=== PATIENT | female | born 1935 | race African-American/Black ===

== ENCOUNTER 2017-11-18 08:51 | Inpatient (IN) ==
[2017-11-18 09:48] LABS: Basophils % 0.4 % (0.0-0.8); Eosinophils % 0.3 % (0.00-10.9); Hematocrit 36.1 VOL% (35.7-47.0); Hemoglobin 12.3 GM/DL (12.0-16.0); Immature Granulocytes % 0.4 %; Immature Granulocytes Absolute 0.03 #; Lymphocytes # 0.6 10*3/uL (1.4-4.0); Lymphocytes % 8.6 % (21.3-54.2); Mean Corpuscular HGB Conc 34.1 GM/DL (32-36); Mean Corpuscular Hemoglobin 30 PG (27-34); Mean Corpuscular Volume 88.9 FL (87-102); Mean Platelet Volume 9.1 FL (9.6-12.0); Monocytes # 0.3 10*3/uL (0.11-0.8); Monocytes % 3.9 % (1.7-12.7); Neutrophils # 5.8 10*3/uL (1.4-7.4); Neutrophils % 86.4 % (38.7-73.9); Platelet Count 288 T/CUMM (130-400); Red Blood Count 4.06 MC/CUMM (3.8-5.5); Red Cell Distribution Width 11.8 % (9.3-17.3); White Blood Count 6.7 T/CUMM (4-12)
[2017-11-18 10:03] LABS: Albumin 4.3 G/DL (3.4-5.0); Bilirubin,Total 0.4 MG/DL (0.2-1.0); Calcium 9.1 MG/DL (8.5-10.1); Total Protein 7.7 G/DL (6.4-8.3)
[2017-11-18 10:04] LABS: Osmolality,Calculated 261.8 MOS/KG (273-304); Potassium 3.7 MMOL/L (3.5-5.1)
[2017-11-18 10:07] LABS: Apearance,Urine CLEAR (Clear); Bilirubin,Urine Negative (Negative); Blood, Urine Negative (Negative); Glucose,Urine (UA) Negative (Negative); Hyaline Casts,Urine 3 /LPF (0-3); Ketones,Urine 5 mg/dL (Negative); Nitrite,Urine Negative (Negative); Protein,Urine Negative; RBC,Urine 1 /HPF (0-4); Urine Color Yellow (Yellow); Urine Specific Gravity 1.008 (1.001-1.035); WBC,Urine <1 /HPF (0-6)
[2017-11-18] MEDS ORDERED: AMPICILLIN/SULBACTAM 3,000 MG in SODIUM CHLORIDE 0.9% 100 ML IV STA (11:08)
[2017-11-18] MEDS ORDERED: AMPICILLIN/SULBACTAM 3,000 MG VIAL ONE (11:11)
[2017-11-18] MEDS ORDERED: ACETAMINOPHEN 325 MG TABLET PO PRN (12:29)
[2017-11-18] MEDS ORDERED: HYDROmorphone 2 MG/1 ML VIAL IV PRN (12:32)
[2017-11-18] MEDS ORDERED: MAGNESIUM SULF RIDER 4 GM in PREMIX 1 EACH IV PRN (12:32)
[2017-11-18] MEDS ORDERED: MAGNESIUM SULF RIDER 2 GM in PREMIX 1 EACH IV PRN (12:32)
[2017-11-18] MEDS ORDERED: DEXTROSE 50% 25 GM/50 ML VIAL IV PRN (13:56)
[2017-11-18] MEDS ORDERED: GLUCAGON 1 MG VIAL IM PRN (13:56)
[2017-11-18] MEDS: metroNIDAZOLE INJ 500 MG in PREMIX 1 EACH IV SCH ×2 (14:11→18:35)
[2017-11-18] MEDS: SODIUM CHLORIDE 0.9% 1,000 ML IV SCH (14:11)
[2017-11-18] MEDS: LEVOFLOXACIN INJ 500 MG in PREMIX 1 EACH IV SCH (15:16)
[2017-11-18] MEDS: INSULIN LISPRO 100 UNIT/ML SUBCUT SCH ×2 (16:19→20:39)
[2017-11-18] MEDS: PRAVASTATIN 40 MG TABLET PO SCH (20:37)
[2017-11-19] MEDS: metroNIDAZOLE INJ 500 MG in PREMIX 1 EACH IV SCH ×4 (01:01→18:11)
[2017-11-19 05:46] LABS: Basophils % 0.5 % (0.0-0.8); Eosinophils # 0.1 10*3/uL (0.0-0.87); Eosinophils % 0.8 % (0.00-10.9); Hematocrit 28.9 VOL% (35.7-47.0); Immature Granulocytes % 0.3 %; Immature Granulocytes Absolute 0.02 #; Lymphocytes % 16.6 % (21.3-54.2); Mean Corpuscular HGB Conc 34.6 GM/DL (32-36); Mean Corpuscular Hemoglobin 30 PG (27-34); Mean Corpuscular Volume 86.8 FL (87-102); Mean Platelet Volume 8.9 FL (9.6-12.0); Monocytes # 0.5 10*3/uL (0.11-0.8); Monocytes % 7.9 % (1.7-12.7); Neutrophils # 4.4 10*3/uL (1.4-7.4); Neutrophils % 73.9 % (38.7-73.9); Platelet Count 219 T/CUMM (130-400); Red Blood Count 3.33 MC/CUMM (3.8-5.5); Red Cell Distribution Width 11.9 % (9.3-17.3)
[2017-11-19 06:13] LABS: Calcium 7.7 MG/DL (8.5-10.1); Osmolality,Calculated 275.5 MOS/KG (273-304); Potassium 3.6 MMOL/L (3.5-5.1)
[2017-11-19] MEDS: INSULIN LISPRO 100 UNIT/ML SUBCUT SCH ×4 (07:25→20:37)
[2017-11-19] MEDS: amLODIPine 2.5 MG TABLET PO SCH (08:25)
[2017-11-19] MEDS: PANTOPRAZOLE 40 MG TABLET PO SCH (08:25)
[2017-11-19] MEDS: LISINOPRIL/HCTZ 20-25 MG TABLET PO SCH (08:25)
[2017-11-19] MEDS: SODIUM CHLORIDE 0.9% 1,000 ML IV SCH ×2 (09:38→10:25)
[2017-11-19] MEDS: LEVOFLOXACIN INJ 500 MG in PREMIX 1 EACH IV SCH (14:26)
[2017-11-19 16:26] LABS: Troponin I Only < 0.015 NG/ML (0.00-0.045)
[2017-11-19] MEDS: PRAVASTATIN 40 MG TABLET PO SCH (20:37)
[2017-11-20] MEDS: metroNIDAZOLE INJ 500 MG in PREMIX 1 EACH IV SCH ×4 (00:13→22:31)
[2017-11-20] MEDS: SODIUM CHLORIDE 0.9% 1,000 ML IV SCH ×2 (03:18→18:09)
[2017-11-20 05:49] LABS: Basophils % 0.4 % (0.0-0.8); Eosinophils % 0.6 % (0.00-10.9); Hemoglobin 9.9 GM/DL (12.0-16.0); Immature Granulocytes % 0.6 %; Immature Granulocytes Absolute 0.03 #; Lymphocytes # 0.8 10*3/uL (1.4-4.0); Lymphocytes % 15.1 % (21.3-54.2); Mean Corpuscular HGB Conc 35.4 GM/DL (32-36); Mean Corpuscular Hemoglobin 31 PG (27-34); Mean Corpuscular Volume 87.2 FL (87-102); Mean Platelet Volume 9.2 FL (9.6-12.0); Monocytes # 0.5 10*3/uL (0.11-0.8); Monocytes % 9.2 % (1.7-12.7); Neutrophils # 3.9 10*3/uL (1.4-7.4); Neutrophils % 74.1 % (38.7-73.9); Platelet Count 218 T/CUMM (130-400); Red Blood Count 3.21 MC/CUMM (3.8-5.5); Red Cell Distribution Width 11.9 % (9.3-17.3); White Blood Count 5.2 T/CUMM (4-12)
[2017-11-20 06:15] LABS: Calcium 7.1 MG/DL (8.5-10.1); Osmolality,Calculated 275.7 MOS/KG (273-304); Potassium 3.3 MMOL/L (3.5-5.1)
[2017-11-20] MEDS: INSULIN LISPRO 100 UNIT/ML SUBCUT SCH ×4 (08:53→22:30)
[2017-11-20] MEDS: LISINOPRIL/HCTZ 20-25 MG TABLET PO SCH (08:54)
[2017-11-20] MEDS: POTASSIUM CHLORIDE 20 MEQ TABLET PO PRN ×3 (08:55→13:15)
[2017-11-20] MEDS: amLODIPine 2.5 MG TABLET PO SCH (08:55)
[2017-11-20] MEDS: PANTOPRAZOLE 40 MG TABLET PO SCH (08:55)
[2017-11-20] MEDS ORDERED: ONDANSETRON 4 MG/2 ML VIAL IV PRN (09:31)
[2017-11-20] MEDS: CIPROFLOXACIN 500 MG TABLET PO SCH (22:30)
[2017-11-20] MEDS: PRAVASTATIN 40 MG TABLET PO SCH (22:30)
[2017-11-21 06:41] LABS: Basophils % 0.5 % (0.0-0.8); Eosinophils # 0.1 10*3/uL (0.0-0.87); Hematocrit 26.3 VOL% (35.7-47.0); Immature Granulocytes % 0.5 %; Immature Granulocytes Absolute 0.02 #; Lymphocytes # 0.8 10*3/uL (1.4-4.0); Lymphocytes % 17.5 % (21.3-54.2); Mean Corpuscular HGB Conc 34.2 GM/DL (32-36); Mean Corpuscular Hemoglobin 30 PG (27-34); Mean Corpuscular Volume 88.3 FL (87-102); Mean Platelet Volume 9.6 FL (9.6-12.0); Monocytes # 0.4 10*3/uL (0.11-0.8); Monocytes % 9.5 % (1.7-12.7); Neutrophils # 3.1 10*3/uL (1.4-7.4); Platelet Count 217 T/CUMM (130-400); Red Blood Count 2.98 MC/CUMM (3.8-5.5); Red Cell Distribution Width 12.2 % (9.3-17.3); White Blood Count 4.4 T/CUMM (4-12)
[2017-11-21 06:55] VITALS: BP 106/56
[2017-11-21 07:07] LABS: Calcium 7.2 MG/DL (8.5-10.1); Osmolality,Calculated 275.4 MOS/KG (273-304); Potassium 4.2 MMOL/L (3.5-5.1)
[2017-11-21] MEDS: SODIUM CHLORIDE 0.9% 1,000 ML IV SCH (07:48)
[2017-11-21] MEDS: INSULIN LISPRO 100 UNIT/ML SUBCUT SCH (07:49)
[2017-11-21] MEDS: LISINOPRIL/HCTZ 20-25 MG TABLET PO SCH (08:46)
[2017-11-21] MEDS: amLODIPine 2.5 MG TABLET PO SCH (08:47)
[2017-11-21] MEDS: CIPROFLOXACIN 500 MG TABLET PO SCH (08:47)
[2017-11-21] MEDS: PANTOPRAZOLE 40 MG TABLET PO SCH (08:47)
[2017-11-21] MEDS: metroNIDAZOLE INJ 500 MG in PREMIX 1 EACH IV SCH (10:06)
== END 2017-11-21 11:28 | disposition home or self-care (01) | DRG 392 ==
LOC: N.ED 08:51 → N.EDINP 11:16 → N.5E 13:57
PROVIDERS: ADMIT Internal Medicine; ATTEND Internal Medicine

== ENCOUNTER 2018-03-03 22:48 | Observation (INO) ==
[2018-03-04] MEDS ORDERED: ONDANSETRON 4 MG/2 ML VIAL IV STA (00:39)
[2018-03-04] MEDS ORDERED: SODIUM CHLORIDE 0.9% 500 ML IV STA (00:39)
[2018-03-04] MEDS ORDERED: NITROGLYCERIN 2% OINT 1 INCH/GM PACK TOP STA (00:39)
[2018-03-04] MEDS ORDERED: ALUM/MAG/SIMETH/LIDO VISC 1:1 30 ML BOTTLE PO STA (00:39)
[2018-03-04] MEDS ORDERED: ASPIRIN 325 MG TABLET PO STA (00:39)
[2018-03-04] MEDS ORDERED: MORPHINE 4 MG/1 ML VIAL IV STA (00:39)
[2018-03-04 01:05] LABS: INR 0.9; PT Patient Result 9.9 SECS
[2018-03-04] MEDS ORDERED: MAGNESIUM SULF RIDER 2 GM in PREMIX 1 EACH IV STA (01:19)
[2018-03-04 01:20] LABS: Albumin 4.4 G/DL (3.4-5.0); Bilirubin,Total 0.4 MG/DL (0.2-1.0); Calcium 8.6 MG/DL (8.5-10.1); Osmolality,Calculated 261.7 MOS/KG (273-304); Potassium 3.4 MMOL/L (3.5-5.1); Total Protein 7.8 G/DL (6.4-8.3)
[2018-03-04 01:21] LABS: Basophils % 0.8 % (0.0-0.8); Eosinophils # 0.1 10*3/uL (0.0-0.87); Eosinophils % 2.1 % (0.00-10.9); Hematocrit 33.5 VOL% (35.7-47.0); Hemoglobin 11.5 GM/DL (12.0-16.0); Immature Granulocytes % 0.4 %; Immature Granulocytes Absolute 0.02 #; Lymphocytes # 1.4 10*3/uL (1.4-4.0); Lymphocytes % 26.3 % (21.3-54.2); Mean Corpuscular HGB Conc 34.3 GM/DL (32-36); Mean Corpuscular Hemoglobin 30 PG (27-34); Mean Corpuscular Volume 87.9 FL (87-102); Mean Platelet Volume 9.8 FL (9.6-12.0); Monocytes # 0.5 10*3/uL (0.11-0.8); Monocytes % 9.4 % (1.7-12.7); Neutrophils # 3.3 10*3/uL (1.4-7.4); Platelet Count 254 T/CUMM (130-400); Red Blood Count 3.81 MC/CUMM (3.8-5.5); Red Cell Distribution Width 12.1 % (9.3-17.3); White Blood Count 5.3 T/CUMM (4-12)
[2018-03-04] MEDS ORDERED: MORPHINE 4 MG/1 ML VIAL IV PRN (04:30)
[2018-03-04] MEDS ORDERED: ONDANSETRON 4 MG/2 ML VIAL IV PRN (04:30)
[2018-03-04] MEDS ORDERED: SIMETHICONE CHEW 125 MG TABLET PO PRN (04:30)
[2018-03-04] MEDS ORDERED: ACETAMINOPHEN 325 MG TABLET PO PRN (04:30)
[2018-03-04] MEDS ORDERED: DEXTROSE 50% 25 GM/50 ML VIAL IV PRN (04:30)
[2018-03-04] MEDS ORDERED: PROMETHAZINE 25 MG/1 ML VIAL IM PRN (04:30)
[2018-03-04] MEDS ORDERED: GLUCAGON 1 MG VIAL IM PRN (04:30)
[2018-03-04] MEDS ORDERED: NITROGLYCERIN SL 0.4 MG TABLET SL PRN (04:30)
[2018-03-04] MEDS: INSULIN REGULAR 100 UNIT/ML SUBCUT SCH ×4 (07:30→20:58)
[2018-03-04] MEDS ORDERED: MAGNESIUM SULF RIDER 2 GM in PREMIX 1 EACH IV ONE (08:07)
[2018-03-04] MEDS: ENOXAPARIN 40 MG/0.4 ML SYRINGE SUBCUT SCH (09:39)
[2018-03-04] MEDS: PANTOPRAZOLE 40 MG TABLET PO SCH (09:40)
[2018-03-04] MEDS: ASPIRIN EC 81 MG TABLET PO SCH (09:40)
[2018-03-04] MEDS: POTASSIUM CHLORIDE 20 MEQ TABLET PO SCH ×2 (09:40→13:28)
[2018-03-04] MEDS: DOCUSATE SODIUM 100 MG CAPSULE PO SCH ×2 (09:40→21:06)
[2018-03-04] MEDS: amLODIPine 2.5 MG TABLET PO SCH (09:40)
[2018-03-04] MEDS: SIMETHICONE CHEW 125 MG TABLET PO SCH ×3 (13:22→21:06)
[2018-03-04] MEDS ORDERED: POTASSIUM CHLORIDE 20 MEQ TABLET PO SCH (13:30)
[2018-03-04] MEDS ORDERED: PRAVASTATIN 40 MG TABLET PO SCH (21:00)
[2018-03-05 04:59] LABS: Basophils % 0.5 % (0.0-0.8); Eosinophils # 0.1 10*3/uL (0.0-0.87); Eosinophils % 2.9 % (0.00-10.9); Hematocrit 30.9 VOL% (35.7-47.0); Hemoglobin 10.5 GM/DL (12.0-16.0); Immature Granulocytes % 0.3 %; Immature Granulocytes Absolute 0.01 #; Lymphocytes % 25.9 % (21.3-54.2); Mean Corpuscular Hemoglobin 30 PG (27-34); Mean Corpuscular Volume 87.8 FL (87-102); Mean Platelet Volume 9.8 FL (9.6-12.0); Monocytes # 0.4 10*3/uL (0.11-0.8); Monocytes % 9.5 % (1.7-12.7); Neutrophils # 2.3 10*3/uL (1.4-7.4); Neutrophils % 60.9 % (38.7-73.9); Platelet Count 233 T/CUMM (130-400); Red Blood Count 3.52 MC/CUMM (3.8-5.5); Red Cell Distribution Width 12.1 % (9.3-17.3); White Blood Count 3.8 T/CUMM (4-12)
[2018-03-05 05:23] LABS: Calcium 8.4 MG/DL (8.5-10.1); Osmolality,Calculated 270.8 MOS/KG (273-304); Potassium 4.6 MMOL/L (3.5-5.1)
[2018-03-05 05:34] LABS: Risk Ratio 1.76; Thyroid Stimulating Hormone 5.68 uIU/ml (0.358-3.74); VLDL CHOLESTEROL 16.8 MG/DL
[2018-03-05] MEDS: amLODIPine 2.5 MG TABLET PO SCH (09:20)
[2018-03-05] MEDS: SIMETHICONE CHEW 125 MG TABLET PO SCH ×2 (09:20→15:15)
[2018-03-05] MEDS: DOCUSATE SODIUM 100 MG CAPSULE PO SCH (09:20)
[2018-03-05] MEDS: PANTOPRAZOLE 40 MG TABLET PO SCH (09:20)
[2018-03-05] MEDS: ASPIRIN EC 81 MG TABLET PO SCH (09:20)
[2018-03-05] MEDS: ENOXAPARIN 40 MG/0.4 ML SYRINGE SUBCUT SCH (09:23)
[2018-03-05 11:13] VITALS: BP 116/38
[2018-03-05] MEDS: INSULIN REGULAR 100 UNIT/ML SUBCUT SCH ×2 (11:30→12:49)
== END 2018-03-05 13:15 | disposition home or self-care (01) ==
LOC: N.ED 22:48 → N.EDINP 22:48 → N.2E 03-04 04:19
PROVIDERS: ADMIT Internal Medicine; ATTEND Internal Medicine